=== PATIENT | male | born 1985 | race Caucasian/White ===

== ENCOUNTER 2018-07-09 01:53 | Emergency (ER) | payer OTHER ==
[~2018-07-09] VITALS: Ht 177.8 cm; Wt 72.6 kg
--- NOTE | 2018-07-09 01:57 | ED.ADGEN ---
Past History Past Medical History: Hypertension Adult General Chief Complaint Chief Complaint ".. I ve been having chest pain for two weeks now.. it started with a cough and congestion.. but now it is just pain... I have past hx of elevated Blood pressure.. and my dad had some cardiac problems and hypertension.. it just not better.." HPI HPI Patient is a 33 year old male who presents with above hx and complaints of hypertension and chest pain. Patient denies any trauma. Patient denies any recent travel. Patient states symptoms started with a cold approximately 2 weeks ago but cold symptoms have resolved however chest pain has persisted. Patient does have a history of hypertension. Patient currently not on any hypertensive meds. Was assigned overseas in [facility] a year ago. 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 Patient's father had a history of cardiac and hypertension issues first treated in age 50s. Patient localizes pain in upper chest currently. There is some mild pleurisy with it. Patient's cough currently is nonproductive. Patient normally follows at [place]. Review of Systems Review of Systems Constitutional: Denies fever or chills [] Eyes: Denies change in visual acuity, redness, or eye pain [] HENT: Denies nasal congestion or sore throat [] Respiratory: Denies cough or shortness of breath [] Cardiovascular: No additional information not addressed in HPI [] GI: Denies abdominal pain, nausea, vomiting, bloody stools or diarrhea [] : Denies dysuria or hematuria [] Musculoskeletal: Denies back pain or joint pain [] Integument: Denies rash or skin lesions [] Neurologic: Denies headache, focal weakness or sensory changes [] Endocrine: Denies polyuria or polydipsia [] All other systems were reviewed and found to be within normal limits, except as documented in this note. Family History Family History Father has a history of hypertension and cardiac issues in age 50s range Current Medications Current Medications Current Medications Medications (Trade) Dose Ordered Sig/Vannessa Start Time Stop Time Status Last Admin Dose Admin Albuterol Sulfate (Ventolin Hfa Inhaler) 2 puff 1X ONCE 07/09/18 03:30 07/09/18 03:31 DC 07/09/18 03:48 2 PUFF Aspirin (Aspirin Enteric Coated) 81 mg STK-MED ONCE 07/09/18 02:44 07/09/18 02:45 DC Aspirin (Children'S Aspirin) 324 mg 1X ONCE 07/09/18 03:00 07/09/18 03:01 DC 07/09/18 02:53 324 MG Clonidine HCl (Catapres Tts-2) 1 patch 1X ONCE 07/09/18 03:30 07/09/18 03:31 DC 07/09/18 03:48 1 PATCH Doxycycline Hyclate (Vibra-Tab) 100 mg 1X ONCE 07/09/18 03:30 07/09/18 03:31 DC 07/09/18 03:47 100 MG Ketorolac Tromethamine (Toradol 30mg Vial) 30 mg 1X ONCE 07/09/18 03:00 07/09/18 03:01 DC 07/09/18 02:50 30 MG Lactated Ringer's 1,000 ml @ 1,000 mls/hr Q1H 07/09/18 03:00 07/09/18 03:59 DC 07/09/18 02:51 1,000 MLS/HR Prednisone (Prednisone) 50 mg 1X ONCE 07/09/18 03:30 07/09/18 03:31 DC 07/09/18 03:47 50 MG See nursing for home meds Allergies Allergies Allergies Coded Allergies Type Severity Reaction Last Updated Verified No Known Drug Allergies 07/09/18 No Physical Exam Physical Exam Constitutional: Well developed, well nourished, no acute distress, non-toxic appearance. [] HENT: Normocephalic, atraumatic, bilateral external ears normal, oropharynx moist,post nasal drainage, no oral exudates, nose clear rhinorrhea. Eyes: PERRLA, EOMI, conjunctiva normal, no discharge. [] Neck: Normal range of motion, no tenderness, supple, no stridor. [] Cardiovascular: Tachycardia Heart rate regular rhythm, no murmur [] Lungs & Thorax: Bilateral breath sounds equal at apexes on auscultation [Does ] have a few scattered wheezes. Abdomen: Bowel sounds normal, soft, no tenderness, no masses, no pulsatile masses. [] Skin: Warm, dry, no erythema, no rash. [] Back: No tenderness, no CVA tenderness. [] Extremities: No tenderness, no cyanosis, no clubbing, ROM intact, no edema. [] No Cording appreciated Neurologic: Alert and oriented X 3, normal motor function, normal sensory function, no focal deficits noted. [] Psychologic: Affect normal, judgement normal, mood normal. [] Current Patient Data Vital Signs Vital Signs Date Time Temp Pulse Resp B/P (MAP) Pulse Ox O2 Delivery O2 Flow Rate FiO2 07/09/18 03:53 97 Room Air Lab Results Laboratory Tests Test 07/09/18 02:25 07/09/18 02:40 White Blood Count 7.8 x10^3/uL (4.0-11.0) Red Blood Count 4.85 x10^6/uL (4.30-5.70) Hemoglobin 14.1 g/dL (13.0-17.5) Hematocrit 41.9 % (39.0-53.0) Mean Corpuscular Volume 87 fL (79-100) Mean Corpuscular Hemoglobin 29 pg (25-35) Mean Corpuscular Hemoglobin Concent 34 g/dL (31-37) Red Cell Distribution Width 13.2 % (11.5-14.5) Platelet Count 205 x10^3/uL (140-400) Neutrophils (%) (Auto) 58 % (31-73) Lymphocytes (%) (Auto) 31 % (24-48) Monocytes (%) (Auto) 9 % (0-9) Eosinophils (%) (Auto) 1 % (0-3) Basophils (%) (Auto) 0 % (0-3) Neutrophils # (Auto) 4.5 x10^3uL (1.8-7.7) Lymphocytes # (Auto) 2.4 x10^3/uL (1.0-4.8) Monocytes # (Auto) 0.7 x10^3/uL (0.0-1.1) Eosinophils # (Auto) 0.1 x10^3/uL (0.0-0.7) Basophils # (Auto) 0.0 x10^3/uL (0.0-0.2) Prothrombin Time 10.4 SEC (9.4-11.4) Prothrombin Time INR 1.0 (0.9-1.1) PTT 26 SEC (23-33) D-Dimer (Rhonda) < 0.19 mg/L (0.00-0.50) Sodium Level 140 mmol/L (136-145) Potassium Level 3.7 mmol/L (3.5-5.1) Chloride Level 104 mmol/L (98-107) Carbon Dioxide Level 28 mmol/L (21-32) Anion Gap 8 (6-14) Blood Urea Nitrogen 17 mg/dL (8-26) Creatinine 1.2 mg/dL (0.7-1.3) Estimated GFR (Cockcroft-Gault) 69.7 Glucose Level 99 mg/dL (70-99) Calcium Level 8.7 mg/dL (8.5-10.1) Magnesium Level 2.0 mg/dL (1.8-2.4) Total Bilirubin 0.4 mg/dL (0.2-1.0) Direct Bilirubin 0.1 mg/dL (0.0-0.2) Aspartate Amino Transferase (AST) 32 U/L (15-37) Alanine Aminotransferase (ALT) 47 U/L (16-63) Alkaline Phosphatase 91 U/L (46-116) Creatine Kinase 435 U/L (39-308) H Troponin I Quantitative < 0.017 ng/mL (0-0.055) ZL-Ggd-G-Type Natriuretic Peptide 18 pg/mL (0-124) Total Protein 6.4 g/dL (6.4-8.2) Albumin 3.5 g/dL (3.4-5.0) Lipase 124 U/L (73-393) Urine Collection Type Void Urine Color Yellow Urine Clarity Clear Urine pH 7.0 Urine Specific [place] 1.020 Urine Protein Neg (NEG-TRACE) Urine Glucose (UA) Neg mg/dL (NEG) Urine Ketones (Stick) Neg mg/dL (NEG) Urine Blood Neg (NEG) Urine Nitrite Neg (NEG) Urine Bilirubin Neg (NEG) Urine Urobilinogen Dipstick 0.2 mg/dL (0.2 mg/dL) Urine Leukocyte Esterase Neg (NEG) Urine RBC 1-2 /HPF (0-2) Urine WBC 1-4 /HPF (0-4) Urine Squamous Epithelial Cells Occ /LPF Urine Bacteria 0 /HPF (0-FEW) Urine Mucus Mod /LPF EKG EKG I interpretation EKG shows a sinus rhythm at 97 bpm. There is mild leftward axis and a right bundle-branch block. No findings acute STEMI of contralateral changes[] Radiology/Procedures Radiology/Procedures My interpretation chest x-ray shows no acute cardiopulmonary findings.[] Course & Med Decision Making Course & Med Decision Making Pertinent Labs and Imaging studies reviewed. (See chart for details). Follow- up with [place]. Take a daily baby aspirin. Take ibuprofen 400 with food up to 4 times a day for chest wall pain. Take prednisone 50 mg day for 5 days. Use MDI 2 puffs 4 times a day. Wear clonidine patch until follow-up at [place]. Return if any concerns. Consider outpatient stress testing if persistent pain. Return if any concerns. [] Final Impression Final Impression 1. Hx. Bronchitis[]- Reactive Airway 2. Chest wall pain 3. Hypertension Dragon Disclaimer Dragon Disclaimer This electronic medical record was generated, in whole or in part, using a voice recognition dictation system. LAURYN CHRISTENSEN MD Jul 09, 2018 01:57
--- NOTE | 2018-07-09 02:21 | EKG ---
[address] [address] Test Date: 2018-07-09 Test Time: 02:10:31 Pat Name: BRIAN HORN Department: Room: Gender: M Senior Adults Director: : 1985 Requested By: LAURYN CHRISTENSEN Order Number: [id number] Reading MD: Aldo Rajput MD Measurements Intervals [place] Rate: 97 P: 20 OK: 152 QRS: 0 QRSD: 108 T: 13 QT: 344 QTc: 441 Interpretive Statements SINUS RHYTHM INCOMPLETE RIGHT BUNDLE BRANCH BLOCK Electronically Signed On 07-09-2018 11:53:35 CDT by Aldo Rajput MD
[2018-07-09] MEDS ORDERED: ASPI-621 PO (02:41)
[2018-07-09] MEDS ORDERED: ASPI1TAB31 PO (02:41)
[2018-07-09] MEDS ORDERED: ASPIRIN ENTERIC COATED 81 MG TABLET.DR. PO ONE (02:44)
[2018-07-09 02:55] LABS: BASO % 0 % (0-3); EOS # 0.1 x10^3/uL (0.0-0.7); EOS % 1 % (0-3); HEMATOCRIT 41.9 % (39.0-53.0); HEMOGLOBIN 14.1 g/dL (13.0-17.5); LYMPH # 2.4 x10^3/uL (1.0-4.8); LYMPH % 31 % (24-48); MEAN CORPUSCULAR HEMOGLOBIN 29 pg (25-35); MEAN CORPUSCULAR HGB CONC 34 g/dL (31-37); MEAN CORPUSCULAR VOLUME 87 fL (79-100); MONO # 0.7 x10^3/uL (0.0-1.1); MONO % 9 % (0-9); NEUT # 4.5 x10^3uL (1.8-7.7); NEUT % 58 % (31-73); PLATELET COUNT 205 x10^3/uL (140-400); RED BLOOD COUNT 4.85 x10^6/uL (4.30-5.70); RED CELL DISTRIBUTION WIDTH 13.2 % (11.5-14.5); WHITE BLOOD COUNT 7.8 x10^3/uL (4.0-11.0)
[2018-07-09] MEDS ORDERED: IV RINGERS SOLUTION,LACTATED 1,000 ML IV SCH (03:00)
[2018-07-09] MEDS ORDERED: ASPIRIN 81 MG TAB.CHEW PO ONE (03:00)
[2018-07-09] MEDS ORDERED: KETOROLAC 30 MG/ML VIAL. IV ONE (03:00)
--- NOTE | 2018-07-09 03:06 | RAD ---
CHEST PA LATERAL Technique: PA and lateral views of the chest were obtained. Clinical History: LEFT SIDED CHEST PAIN
NO HX OF HEART OR LUNG DISEASE, NONSMOKER Comparison: None. Findings: The heart and pulmonary vasculature appear within normal limits. The lungs are clear. The pleural margins are clear. Impression: No acute chest process is seen. Electronically signed by: Erasto Lomax III, MD (07/09/2018 3:03 AM) [id number]
[2018-07-09 03:11] LABS: ALBUMIN 3.5 g/dL (3.4-5.0); CALCIUM 8.7 mg/dL (8.5-10.1); CREATININE 1.2 mg/dL (0.7-1.3); DIRECT BILIRUBIN 0.1 mg/dL (0.0-0.2); GFR 69.7; POTASSIUM 3.7 mmol/L (3.5-5.1); TOTAL BILIRUBIN 0.4 mg/dL (0.2-1.0); TOTAL PROTEIN 6.4 g/dL (6.4-8.2)
[2018-07-09 03:26] LABS: BACTERIA,URINE 0 /HPF (0-FEW); BILIRUBIN,URINE NEG (NEG); CLARITY,URINE CLEAR; COLOR,URINE YELLOW; GLUCOSE,URINE NEG (NEG); NITRITE,URINE NEG (NEG); SQUAMOUS EPITHELIAL CELL,UR OCC /LPF; UROBILINOGEN,URINE 0.2 mg/dL (0.2 mg/dL)
[2018-07-09] MEDS ORDERED: ASPI-630 PO (03:27)
[2018-07-09] MEDS ORDERED: DOXY100T9 PO (03:27)
[2018-07-09] MEDS ORDERED: PRED50TA PO (03:27)
[2018-07-09] MEDS ORDERED: IBUP400T18 PO (03:27)
[2018-07-09] MEDS ORDERED: CLON1PAT2 TD (03:29)
[2018-07-09] MEDS ORDERED: predniSONE 20 MG TABLET PO ONE (03:30)
[2018-07-09] MEDS ORDERED: DOXYCYCLINE HYCLATE 100 MG TABLET PO ONE (03:30)
[2018-07-09] MEDS ORDERED: cloNIDine TTS-2 1 PATCH PATCH TD ONE (03:30)
[2018-07-09] MEDS ORDERED: ALBUTEROL SULFATE 8GM INHALER. INH ONE (03:30)
[2018-07-09 03:45] VITALS: BP 132/90
[2018-07-09 13:52] LABS: THYROID STIM HORMONE (TSH) 1.577 uIU/mL (0.358-3.740)
== END 2018-07-09 03:55 | disposition home or self-care (01) ==
LOC: ER 01:53
DX: I10 Essential (primary) hypertension (principal); R07.89 Other chest pain; J45.909 Unspecified asthma, uncomplicated
CPT/HCPCS: 36415; 71046; 80048; 80061; 80076; 81001; 82550; 83690; 83735; 83880; 84443; 84484; 85025; 85379; 85610; 85730; 93005; 94640; 96374; 99285; J1885; J7120; J7512; J7613; 94664